=== PATIENT | male | born 1970 | race Caucasian/White ===

== ENCOUNTER 2025-06-24 16:42 | Emergency (ER) | payer OTHER, SELFPAY ==
[2025-06-24] VITALS (37 sets, daily range): BP systolic 137–169; BP diastolic 88–124; PULSE 63–113; TEMP 36.8; O2SAT 95–100; BMI 29.9
--- NOTE | 2025-06-24 17:39 | ECG_ITS ---
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 Measurements Intervals [place] Rate: 79 P: 71 FL: 172 QRS: -16 QRSD: 90 T: 50 QT: 368 QTc: 403 Interpretive Statements 1100 Sinus rhythm 9110 normal ECG Compared to ECG 02/16/2017 22:36:20 No significant changes Electronically Signed On 06-25-2025 11:41:25 EST by PANCHITO GIRON M.D.
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
--- OUTSIDE RECORDS SUMMARY | 2025-06-24 18:07 | XMS_ITS | Clinical Summary ---
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 Name Role Phone Unavailable Primary Care Provider Unavailabl e Social History Tobacco UseTypesPacks/DayYears UsedDateSmoking Tobacco: Never AssessedUT Safety & EnvironmentAnswerDate RecordedFear of Current or Ex-PartnerNot on file 08/24/2023Emotionally AbusedNot on file08/24/2023hysically AbusedNot on file 08/24/2023Sexually AbusedNot on file4Physically or Sexually AbusedNot on file08/24/2023Sex and Gender InformationValueDate RecordedSex Assigned at BirthNot on fileLegal PugOpsb2412/29/2021 10:57 PM EDTGender IdentityNot on file Sexual OrientationNot on file Last Filed Vital Signs Vital SignReadingTime TakenCommentsBlood Qouuearf753/8703 10:07 AM EST Qyumz893609/03/2020 10:07 AM EJMYcjydhgpgjs70.6 ??C (97.9 ??F)09/03/2020 10:06 AM ESTRespiratory Rate--Oxygen Saturation--Inhaled Oxygen Concentration--Lndkbm304 kg (234 lb)09/03/2020 10:03 AM KONIplqjb435.3 cm (5' 9 )09/03/2020 10:03 AM EST Body Mass Index34.56009/03/2020 10:03 AM EST Plan of Treatment Health MaintenanceDue DateLast DoneCommentsCT Tjavcpndgqbb20/09/1973Colonoscopy 1970Colorectal Cancer Ulwpwgpxi62/09/1973FIT-DNA1972FIT1970 FOBT1970 9445Nfqvtywgmzphu11/09/1973Depression Yzjmlvwpw62/09/1985Hepatitis B Vaccines (1 of 3 - 19+ 3-dose series)10/10/1991Pneumococcal Vaccine: Pediatrics (0 to 5 Years) and At-Risk Patients (6 to 64 Years) (1 of 2 - PCV)10/10/1991 Adult Tlxqsxp5210/09/1994Zoster Vaccines (1 of 2)3COVID-19 Vaccine (1 - 2024- season)2025Influenza Vaccine (#1)2025HIB VaccinesAged OutNo longer eligible based on patient's age to complete this topicHPV VaccinesAged OutNo longer eligible based on patient's age to complete this topicIPV Vaccines Aged OutNo longer eligible based on patient's age to complete this topic Meningococcal B VaccineAged OutNo longer eligible based on patient's age to complete this topicMeningococcal VaccineAged OutNo longer eligible based on patient's age to complete this topicRotavirus VaccinesAged OutNo longer eligible based on patient's age to complete this topic Insurance
[2025-06-24 18:17] LABS: Hematocrit 45.8 % (42.0-54.0); Hemoglobin 16.0 g/dL (14.0-18.0); Immature Granulocytes Abs Auto 0.02 10^3/uL (0.00-0.03); Immature Granulocytes Pct Auto 0.5 % (0.0-0.5); Lymphocytes Absolute Auto 1.3 10^3/uL (1.2-3.8); Mean Corpuscular HGB Conc 34.9 g/dL (29.9-35.2); Mean Corpuscular Hemoglobin 31.0 pg (25.9-34.0); Mean Corpuscular Volume 88.8 fL (80.0-94.0); Platelet Count 134 10^3/uL (150-450); Red Blood Count 5.16 10^6/uL (4.70-6.10); White Blood Count 3.9 10^3/uL (4.0-11.0)
[2025-06-24 18:18] LABS: Alanine Aminotransferase 42 U/L (16-63); Albumin Globulin Ratio 1.0; Albumin Level 3.6 g/dL (3.4-5.0); Alkaline Phosphatase 73 U/L (46-116); Anion Gap 12.9; Aspartate Amino Transferase 25 U/L (15-37); Blood Urea Nitrogen 8.0 mg/dL (7.0-18.0); Calcium 8.9 mg/dL (8.5-10.1); Carbon Dioxide 26.8 mmol/L (21.0-32.0); Chloride 102 mmol/L (98-107); Estimated GFR (African America >60 (>=60 mL/min/1.73m^2); Estimated GFR (Non-African Ame >60 (>=60 mL/min/1.73m^2); Globulin 3.7 g/dL; Glucose 419 mg/dL (74-106); Potassium 3.7 mmol/L (3.5-5.1); Sodium 138 mmol/L (136-145); Total Protein 7.3 g/dL (6.4-8.2)
[2025-06-24 18:20] LABS: Creatine Kinase 68 U/L (39-308); Lipase 28.0 U/L (16.0-77.0); Salicylate 2.8 mg/dL (<=19.9)
[2025-06-24] MEDS: 0.9 % SODIUM CHLORIDE 1,000 ML 999 ML IV (18:23)
[2025-06-24 18:24] LABS: Acetaminophen <2.0 ug/mL (10.0-30.0)
[2025-06-24 18:29] LABS: PCO2 VBG 44.7 mmHg (40.0-52.0); pH VBG 7.358 (7.330-7.430)
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
== END 2025-06-24 20:48 | disposition home or self-care (01) ==
PROVIDERS: Emergency Medicine; Emergency Provider Emergency Medicine
DX: T50.901A Poisoning by unspecified drugs, medicaments and biological substances, accidental (unintentional), initial encounter (principal); V89.2XXA Person injured in unspecified motor-vehicle accident, traffic, initial encounter; Z91.148 Patient's other noncompliance with medication regimen for other reason; I10 Essential (primary) hypertension
CPT/HCPCS: 36415; 70450; 71045; 80053; 80179; 80320; 80329; 81001; 82550; 82800; 83690; 84484; 85025; 93005; 96374; 99284; J2405